=== PATIENT | female | born 1940 | race Caucasian/White ===

== ENCOUNTER 2016-08-11 01:50 | Emergency (ER) | payer MEDICAID, MEDICARE ==
[~2016-08-11] VITALS: Ht 170.2 cm; Wt 64.5 kg
[~2016-08-11 01:50] MED LIST: ATEN25TA PO; ATOR20TA65 PO; CLAR500T PO; LISI-567 PO; LORA1TAB PO; METR250T25 PO; [UNRECOGNIZED DRUG - CODE] MC
[2016-08-11 01:55] VITALS: BP 176/77; PULSE 71; RESP 15; O2SAT 99
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
[2016-08-11] MEDS ORDERED: _oxyCODONE/APAP 5-325 mg Tablet PO PRN (02:45)
[2016-08-11 04:01] VITALS: BP 178/92; PULSE 79; RESP 16; O2SAT 99
== END 2016-08-11 03:59 | disposition home or self-care (01) ==
LOC: SED 01:50
DX: S32.010A Wedge compression fracture of first lumbar vertebra, initial encounter for closed fracture (principal); X58.XXXA Exposure to other specified factors, initial encounter; Y93.9 Activity, unspecified; Y99.8 Other external cause status; Y92.9 Unspecified place or not applicable; I10 Essential (primary) hypertension; K21.9 Gastro-esophageal reflux disease without esophagitis; J45.909 Unspecified asthma, uncomplicated; F17.200 Nicotine dependence, unspecified, uncomplicated; M54.30 Sciatica, unspecified side; Z85.3 Personal history of malignant neoplasm of breast; Z88.5 Allergy status to narcotic agent